=== PATIENT | female | born 1975 | race Two or more races ===

== ENCOUNTER 2025-07-11 09:58 | Outpatient (AMB) | payer OTHER, SELFPAY ==
[2025-07-11 10:23] VITALS: BMI 38.4
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
--- OUTSIDE RECORDS SUMMARY | 2025-07-11 10:55 | XMS_ITS | Clinical Summary ---
Author Organization [facility] Address [address] [place] [address] Phone Care Team Providers Care Wastewater Project Manager Name Role Phone Eliot Walters MD Primary Care Provider [phone] Allergies No known active allergies Encounters Date Type Department Care Team Description 05/11/2025 12:42 AM EDT - 05/11/2025 1:26 AM EDT Emergency [facility] Emergency [address] [place] [address] Acute left-sided back pain with sciatica (Primary Dx) Discharge Disposition: Home or Self Care from Last 3 Months Social History Tobacco Use Types Packs/Day Years Used Date Smoking Tobacco: Never Assessed Comments No Sex and Gender Information Value Date Recorded Sex Assigned at Not on file Legal Sex Female 2:25 PM EST Gender Identity Not on file Sexual Orientation Not on file Last Filed Vital Signs Vital Sign Reading Time Taken Comments Blood Pressure 148/96 05/11/2025 12:32 AM EDT Pulse 75 05/11/2025 12:32 AM EDT Temperature 36.5 C (97.7 F) 05/11/2025 12:32 AM EDT Respiratory Rate 16 05/11/2025 12:32 AM EDT Oxygen Saturation 98% 05/11/2025 12:32 AM EDT Inhaled Oxygen Concentration - - Weight 109 kg (240 lb) 05/11/2025 12:32 AM EDT Height 170.2 cm (5' 7 ) 05/11/2025 12:32 AM EDT Body Mass Index 37.59 05/11/2025 12:32 AM EDT Plan of Treatment Health Maintenance Due Date Last Done Comments Breast Cancer Screening 1977 Colorectal Cancer Screening: Colonoscopy 1977 Diabetes: Annual GFR (Glomerular Filtration Rate) 1977 Diabetes: Annual Foot Exam 1987 Diabetes: Annual Retina Eye Exam 1987 Hepatitis B Vaccines (1 of 3 - 19+ 3-dose series) 1996 Pneumococcal Vaccine: Pediatrics (0 to 5 Years) and At-Risk Patients (6 to 49 Years) (1 of 2 - PCV) 1996 Cervical Cancer Screening: Pap Smear 1998 Cholesterol Screening (Lipid Panel) 06/12/2022 HIV Screening 06/12/2022 Hepatitis C Screening 06/12/2022 Medicare Annual Wellness Visit 06/12/2022 Social Influencers of Health Screening 06/12/2022 Depression Screening 07/14/2024 Diabetes: Annual Urine Albumin-Creatinine Ratio (uACR) 02/28/2025 Diabetes: Blood Sugar Control Test (HGBA1C) 02/28/2025 Hypertension/CHF/CAD Annual BMP Blood Test 02/28/2025 COVID-19 Vaccine ( season) 2025 04/12/2022, 12/12/2021, 10/21/2020 Influenza Vaccine (#1) 2025 , 04/12/2022, 05/07/2019, Additional history exists DTaP,Tdap,and Td Vaccines (2 - Td or Tdap) 05/04/2031 05/04/2021 RSV Immunization Adult Patients (1 - 1-dose 75+ series) 2052 HIB Vaccines Aged Out No longer eligi ble based on patient's age to complete this topic HPV Vaccines Aged Out No longer eligi ble based on patient's age to complete this topic Hepatitis A Vaccines Aged Out No long er eligible based on patient's age to complete this topic IPV Vaccines Aged Out No longer eligi ble based on patient's age to complete this topic MMR Vaccines Aged Out No longer eligi ble based on patient's age to complete this topic Meningococcal ACWY Vaccine Aged Out N o longer eligible based on patient's age to complete this topic Meningococcal B Vaccine Aged Out No l onger eligible based on patient's age to complete this topic RSV Immunization Patients Under 20 months Aged Out No longer eligible based on patient's age to complete this topic Varicella Vaccines Aged Out No longer eligible based on patient's age to complete this topic Insurance [employer] Member Subscriber Plan / Payer (Ef fective 2019-Present) Name:KELLY CHACON Relation to Subscriber:Self Name:Kelly Chacon Payer ID:[id number] Group ID:[id number] Type:Not on file Address: [place] [address] [address] [address] Care Teams Wastewater Project Manager Relationship Specialty Start Date End Date Eliot Walters MD [address] [place] [address] PCP - General 12/11/22
== END 2025-07-11 10:57 | disposition home or self-care (01) ==
LOC: HO.HPHYS 09:58
PROVIDERS: Visit Provider Physician Assistant
DX: M54.16 Radiculopathy, lumbar region (principal); M17.12 Unilateral primary osteoarthritis, left knee
CPT/HCPCS: 99204

== ENCOUNTER → 2025-07-11 09:58 | Outpatient (BNVA) | payer OTHER, SELFPAY | PROVIDERS: Visit Provider Physician Assistant | DX: M54.16 Radiculopathy, lumbar region (principal); M54.40 Lumbago with sciatica, unspecified side; G89.29 Other chronic pain; R20.0 Anesthesia of skin | CPT/HCPCS: 99202 ==